=== PATIENT | male | born 1955 | race Caucasian/White ===

== ENCOUNTER → 2020-03-07 07:53 | Outpatient (CLI) | payer OTHER, SELFPAY ==
[2020-01-18 05:47] VITALS: BMI 34.7
--- NOTE | 2020-03-07 07:58 | ECHOD_ITS ---
Reason For Study: PHTN Procedure This was a 2D Doppler, Color Flow transthoracic echocardiogram. Exam performed in department. Left Ventricle Normal LV size. Left ventricular systolic function is normal. The estimated ejection fraction is 60 %. Stage 1 diastolic dysfunction. No regional wall motion abnormalities noted. Right Ventricle Normal RV size. Normal systolic function. Atria The left atrium is mildly enlarged. Normal right atrium. Mitral Valve Normal mitral valve. Tricuspid Valve Normal tricuspid valve. Mild (1+) tricuspid valve insufficiency. Pulmonary artery systolic pressure is 30 mmHg. Aortic Valve Normal aortic valve. Trisinus/trileaflet aortic valve. Pulmonic Valve Normal pulmonic valve. Great Vessels Normal aortic root. The pulmonary artery is normal size. Normal inferior vena cava. Pericardium/Pleural No pericardial effusion. MMode/2D Measurements & Calculations LVIDd: 4.6 cm IVSd: 1.2 cm Ao root diam: 3.8 cm LVIDs: 2.5 cm LVPWd: 1.0 cm LA dimension: 4.8 cm RVDd: 4.9 cm FS: 45.2 % LAV(MOD-bp): 70.6 ml LA A4 area: 25.2 cm2 RA A4 area: 18.8 cm2 LAV(MOD-bp) Indexed: 31.3 ml/m2 LAV(MOD-sp2): 62.1 ml LAV(MOD-sp4): 75.7 ml Time Measurements MV dec time: 0.28 sec Doppler Measurements & Calculations MV E max brigido: 84.2 cm/sec Lat Peak E' Brigido: 10.7 cm/sec Med Peak E' Brigido: 7.7 cm/sec MV A max brigido: 99.3 cm/sec E/E' lat: 7.9 E/E' med: 11.0 MV E/A: 0.85 MV V2 max: 109.8 cm/sec MV P1/2t max brigido: 91.5 cm/sec Ao V2 max: 147.3 cm/sec MV max P.8 mmHg MV P1/2t: 105.7 msec Ao max P.7 mmHg MV V2 mean: 58.1 cm/sec MV dec slope: 253.6 cm/sec2 MV mean P.6 mmHg MVA(P1/2t): 2.1 cm2 MV V2 VTI: 36.7 cm LV V1 max: 139.0 cm/sec PA V2 max: 125.2 cm/sec TR max brigido: 259.5 cm/sec LV V1 max P.7 mmHg TR max P.9 mmHg Interpretation Summary Normal LV size. Left ventricular systolic function is normal. The estimated ejection fraction is 60 %. Stage 1 diastolic dysfunction. The left atrium is mildly enlarged. Mild (1+) tricuspid valve insufficiency. Pulmonary artery systolic pressure is 30 mmHg. Compared to prior study, there is no significant change. Ordering Physician: Jeanie Medina Referring Physician: Jose Angel Stone Performed By: Davion Cook RCS
== END ==
PROVIDERS: PCP Family Medicine; Referring Provider Nurse Practitioner Family; Visit Provider Nurse Practitioner Family
DX: I51.7 Cardiomegaly (principal); I27.20 Pulmonary hypertension, unspecified; I26.94 Multiple subsegmental thrombotic pulmonary emboli without acute cor pulmonale
CPT/HCPCS: 93306

== ENCOUNTER 2020-08-09 08:06 | Outpatient (RCR) | payer OTHER, SELFPAY ==
[2020-01-18 05:47] VITALS: BMI 34.7
[2020-08-09] MEDS: COVID-19 VACC, MRNA(PFIZER)/PF 30 MCG/0.3 ML SYRINGE IM (17:52)
[2020-08-30] MEDS: COVID-19 VACC, MRNA(PFIZER)/PF 30 MCG/0.3 ML SYRINGE IM (17:09)
== END 2020-11-13 23:59 ==
LOC: IMMUN 08:06
PROVIDERS: PCP Family Medicine; Referring Provider Family Medicine; Visit Provider Family Medicine
DX: Z23 Encounter for immunization (principal)
CPT/HCPCS: 0001A; 0002A; 91300

== ENCOUNTER 2024-02-16 15:24 | Emergency (ER) | payer OTHER, SELFPAY ==
[2024-02-16 15:26] VITALS: BP 127/85; PULSE 82; RESP 18; TEMP 36.4; O2SAT 93
--- NOTE | 2024-02-16 16:05 | ED.VIS.FALL ---
HPI HPI - Fall History of Present Illness Chief Complaint: [facility] Medical History (Updated 02/16/24 @ 17:[address] Hernandez Mccarthy, DO) JEFF on CPAP Acute respiratory failure with hypoxia Right leg DVT Pulmonary HTN Right ventricular dilation Pulmonary embolism, bilateral Elevated troponin Anemia Leiomyosarcoma of leg Home Medications ?Medication ?Instructions ?Recorded ?Last Taken ?Type ascorbic acid (vitamin C) 500 mg 500 mg PO DAILY@0800 11/28/14 Unknown History tablet multivitamin with folic acid 400 1 tab PO DAILY 11/28/14 11/27/14 History mcg tablet meloxicam 15 mg tablet mg PO 04/15/23 Unknown History Allergy/AdvReac Type Severity Reaction Status Date / Time No Known Allergies Allergy Verified 02/16/24 15:26 Family History Mother blood clots Father Heart disease Surgical History History of eye surgery History of knee surgery Social History (Updated 03/24/22 @ 08:23 by Nidhi Ball) Smoking Status: Never smoker second hand exposure: No alcohol intake: never substance use type: does not use caffeine: No what type of physical activity do you participate in: other frequency: daily EXAM Physical Exam Const Vital Signs: 02/16/24 15:26 02/16/24 16:31 Temperature 97.6 F L Temperature Source Temporal Pulse Rate 82 Respiratory Rate 18 Respiratory Effort Normal Non-Labored Respiratory Pattern Normal Blood Pressure 127/85 H Blood Pressure Mean 99 Pulse Ox 93 Oxygen Delivery Method Room Air MDM MDM MDM Narrative Medical decision making narrative: HISTORY OF PRESENT ILLNESS: 68-year-old male presents after a fall at work per triage note patient is complaining of right hip pain. The patient states he suffered mechanical fall. Notes he did not hit the ground. Notes he twisted his right hip. Complains of right hip pain but denies knee pain ankle pain. Denies head trauma loss of consciousness or vomiting. REVIEW OF SYSTEMS: Pertinent positives: Right hip pain Pertinent negatives: Head trauma, loss of consciousness PHYSICAL EXAM: Nursing triage notes reviewed, Vital signs reviewed Primary Survey Airway: Intact Breathing: Bilateral breath sounds Circulation: Palpable bilateral femorals, Palpable bilateral radial, Palpable bilateral DP and Palpable bilateral PT Disability / Spine precautions GCS Score: Eye Openin Verbal Response: 5 Motor Response: 6 Secondary Survey Constitutional: Please see MDM Head: Atraumatic, Midface stable, NO jaw malocclusion, No Cephalohematoma, and No Lacerations noted Eye: Pupils equal round and reactive to light, Extraocular muscles intact and No periorbital ecchymosis or stepoff, no evidence of entrapment ENT: Oropharynx clear, no lacerations, no hemotympanum, no raccoon eyes or orellana sign Cervical spine / Neck: No cervical spine bony tenderness, crepitance, or stepoff deformity Trachea midline Lungs: Clear to auscultation, No asymmetric rise and No crepitus, no flail chest Cardiac: Regular rate and rhythm and No murmurs Abdomen: Soft, Nontender and No rebound Pelvis: Pelvis stable to compression : No evidence of genital injury Back: No midline bony tenderness to thoracic/lumbar/sacral spines Neuro: At baseline, intact strength and sensation in bilateral upper and lower extremities. 2+ patellar reflexes bilaterally. Extremities: NO gross Deformities, TTP over right hip noted intact logroll intact flexion/extension internal/external rotation. The right leg was similar in length to the left. Intact quadriceps tendon complex. Compartments were soft. Psych: Normal affect Nursing triage notes reviewed, Vital signs reviewed MEDICAL DECISION MAKING: Chief Complaint: Right hip pain External records reviewed: No recent advanced imaging of the involved extremity Factors affecting care: History of pulmonary hypertension, DVT, history of knee surgery [facility] Narrative: Patient was hemodynamically stable, afebrile and nontoxic-appearing. Exam with right hip TTP. No obvious deformities. No signs of open fracture. No trauma noted to the head axial skeleton chest abdomen upper extremities or left lower extremity. I considered the following differential diagnosis: Right hip contusion, right hip fracture dislocation I obtained an x-ray to further elucidate etiology of his complaints. ALL IMAGES (IF OBTAINED) HAVE BEEN PERSONALLY REVIEWED AND INTERPRETED BY MYSELF. X-ray of the right hip was read and reviewed person myself shows no evidence of obvious bony abnormality including fracture dislocation. Radiologist agrees my interpretation of The patient and/or family, caregivers express understanding. The patient and/or family, caregivers agrees with the plan. Shared decision making: I will have a discussion with the patient and or visitors regarding risk/benefits of further testing or admission. They will be made aware of of the risk/benefits inherent in this decision they will be given the opportunity to voice understanding. Total critical care time today provided was at least 0 minutes. This excludes separately billable procedures. Critical care time (if documented) is secondary to the patient having high probability of clinically significant/life threatening deterioration in the patient's condition which required my urgent intervention. Impression: 1. Fall 2. Acute right hip pain Dispo: Discharge This note was generated with [employer] dictation software. It may contain incorrect words, spelling, and punctuation that were not noted in review of the chart prior to signing. Radiography Diagnostic Testing: Clinical Impression(s) from Imaging Studies Hip/Pelvis X-Ray 02/16/24 16:37 IMPRESSION: Orthopedic screws within the proximal femur. There are no acute osseous abnormalities. There are lytic changes seen within the visualized femoral shaft. If indicated further evaluation of the entire femur may be beneficial. Electronically Signed: Eliot Romero MD at 17:06 EDT , Discharge Plan Triage Chief Complaint: Fall ED Provider: Hernandez Mccarthy Dx/Rx/DC Orders Clinical Impression: Contusion of hip Instructions: Bone Contusion Prescriptions: No Action meloxicam 15 mg tablet PO Patient Comments: Take once daily with food or milk for 3 TO 4 weeks, then begin taking as needed. ascorbic acid (vitamin C) 500 MG tablet 500 mg PO DAILY@0800 Patient Comments: wound healing supplement multivitamin with folic acid 1 TABLET tablet 1 tab PO DAILY Patient Comments: supplement Stand Alone Forms: ED Work / School Excuse Primary Care Provider: Vivian Nava Referrals: Vivian Nava PA [Primary Care Provider] - Activity Restrictions/Additional Instructions: Thank you for trusting us with your care today! The x-ray of your right hip was negative for bony abnormality. You may return to work as soon as tomorrow. Please take Tylenol (2 pills, 650 mg), ibuprofen (2 pills, 400 mg) every 6 hours as needed for pain and fever control. Please return to the emergency department if your symptoms change or worsen. Please follow with your primary care physician for further outpatient evaluation and management. Print Language: Congolese Disposition Disposition: Home, Self Care
--- NOTE | 2024-02-16 16:37 | RAD_ITS ---
EXAM: XR RIGHT HIP WITH PELVIS WHEN PERFORMED, 2 OR 3 VIEWS CLINICAL INDICATION: right hip pain TECHNIQUE: Two or three views of the right hip with pelvis when performed. COMPARISON: No relevant prior studies available. FINDINGS: BONES/JOINTS: There are orthopedic screws in the proximal right femur. The visualized mid femur with multiple lytic areas within it. Heterotopic bone formation present. No displaced fracture. Sacroiliac joint is unremarkable. No widening of the pubic symphysis. The articular structures are unremarkable. SOFT TISSUES: Unremarkable. No soft tissue swelling or gas. RAD/HIP, UNI W/ Pelvis 2-3 Views IMPRESSION: Orthopedic screws within the proximal femur. There are no acute osseous abnormalities. There are lytic changes seen within the visualized femoral shaft. If indicated further evaluation of the entire femur may be beneficial. Electronically Signed: Eliot Romero MD at 17:06 EDT ,
--- NOTE | 2024-02-16 16:51 | ED.RN ---
SOFIYA, [facility], CONFIRMED NEED FOR ETOH/DRUG TOX PER HR AT COMPANY. WILL SEND TO [facility]
[2024-02-16 18:13] VITALS: BP 131/79; PULSE 84; RESP 14; TEMP 36.1; O2SAT 100
--- NOTE | 2024-02-16 18:27 | ED.RN ---
Per form we had for wc testing, we had no one button cutter and patient was to go to [facility]. Patient given information on [facility] to go there tomorrow.
== END 2024-02-16 18:14 | disposition home or self-care (01) ==
PROVIDERS: Emergency Provider Emergency Medicine; PCP Physician Assistant; Visit Provider Emergency Medicine
DX: S70.01XA Contusion of right hip, initial encounter (principal); G47.33 Obstructive sleep apnea (adult) (pediatric); Z99.89 Dependence on other enabling machines and devices; Y99.0 Civilian activity done for income or pay; W19.XXXA Unspecified fall, initial encounter; Y92.89 Other specified places as the place of occurrence of the external cause
CPT/HCPCS: 73502; 99282